=== PATIENT | female | born 2000 | race Two or more races ===

== ENCOUNTER 2022-07-18 21:08 | Inpatient (IN) | payer OTHER ==
[2022-07-18 22:05] VITALS: BMI 24.5
[2022-07-18] MEDS ORDERED: MAG HYDROX/AL HYDROX/SIMETH 30 ML UNIT-DOSE CUP PO PRN (23:29)
[2022-07-18] MEDS ORDERED: NICOTINE 10 MG CARTRIDGE (INHALER) IH PRN (23:29)
[2022-07-18] MEDS ORDERED: P-EPHED 60MG/TRIPROLIDI 2.5MG TABLET PO PRN (23:29)
[2022-07-18] MEDS ORDERED: IBUPROFEN 400 MG TABLET (FP) PO PRN (23:29)
[2022-07-18] MEDS ORDERED: LOPERAMIDE HCL 2 MG CAPSULE PO PRN (23:29)
[2022-07-18] MEDS ORDERED: MELATONIN 5 MG TABLETS PO PRN (23:29)
[2022-07-18] MEDS ORDERED: POLYETHYLENE GLYCOL (HEALTHYLAX) 3350 17 GM PACKET PO PRN (23:29)
[2022-07-18] MEDS ORDERED: NALOXONE HCL (KLOXXADO) 8 MG SPRAY NS PRN (23:29)
[2022-07-18] MEDS ORDERED: BENZOCAINE/MENTHOL (CHLORASEPTIC ) LOZENGE MM PRN (23:29)
[2022-07-18] MEDS ORDERED: BISMUTH SUBSALICYLATE 524 MG/30 ML PO PRN (23:29)
[2022-07-18] MEDS ORDERED: MAGNESIUM HYDROX 2400MG/30ML ORAL SUSPENSION 30 ML CUP PO PRN (23:29)
[2022-07-18] MEDS ORDERED: ACETAMINOPHEN 325 MG TABLET (FP) PO PRN ×2 (23:29)
[2022-07-18] MEDS ORDERED: NALOXONE HCL 0.4 MG/ML VIAL IM PRN (23:29)
[2022-07-18] MEDS ORDERED: ONDANSETRON *ODT* 4 MG TABLET SL PRN (23:29)
[2022-07-18] MEDS ORDERED: IBUPROFEN 600 MG TABLET (FP) PO PRN (23:29)
[2022-07-18] MEDS ORDERED: METHOCARBAMOL 500 MG TABLET PO PRN (23:29)
[2022-07-18] MEDS ORDERED: DICYCLOMINE HCL 10 MG CAPSULE PO PRN (23:29)
[2022-07-18] MEDS ORDERED: guaiFENesin 200 MG/10 ML 10 ML UNIT-DOSE CUPS PO PRN (23:29)
[2022-07-19] MEDS: hydrOXYzine PAMOATE 25 MG CAPSULE (FP) PO PRN ×2 (01:35→05:40)
[2022-07-19 09:40] VITALS: BP 136/70; PULSE 92; RESP 18; TEMP 98.1
[2022-07-19] MEDS ORDERED: PRENATAL VITAMINS W/ FOLIC ACID TABLET (FP) PO SCH (10:00)
[2022-07-19 11:10] LABS: HEMATOCRIT 37.6 % (32.4-45.2); HEMOGLOBIN 12.4 GM/dL (10.7-15.3); MCH 29.2 pg (25.7-33.7); MEAN CELL VOLUME 88.5 fl (80-96); MEAN PLT VOLUME 8.6 fl (7.5-11.1); PLATELET COUNT 282 10^3/uL (134-434); RBC 4.25 M/mm3 (3.60-5.2); RDW 14.4 % (11.6-15.6); WHITE BLOOD COUNT 8.8 K/mm3 (4.0-10.0)
[2022-07-19 11:14] LABS: ALBUMIN 3.9 g/dl (3.4-5.0); CALCIUM 9.1 mg/dL (8.5-10.1)
[2022-07-19 11:17] LABS: CREATININE 0.7 mg/dL (0.55-1.3)
[2022-07-19 11:19] LABS: BILIRUBIN,TOTAL 0.7 mg/dL (0.2-1); TOT PROT 7.9 g/dl (6.4-8.2)
[2022-07-19] MEDS ORDERED: THIAMINE HCL 100 MG TABLET (FP) PO SCH (22:00)
== END 2022-07-19 10:35 | disposition left against medical advice (07) | DRG 770 ==
LOC: YASAS 21:08 → Y6N 23:11 → UNDOADMIN 23:31 → UNDODISIN 07-19 10:35
PROVIDERS: ADMIT Allergy & Immunology; ATTEND Surgery
PROC: HZ2ZZZZ Detoxification Services for Substance Abuse Treatment (ICD-10-PCS; principal; 2022-07-18)
DX: F11.23 Opioid dependence with withdrawal (principal); F14.20 Cocaine dependence, uncomplicated; F15.20 Other stimulant dependence, uncomplicated; F16.20 Hallucinogen dependence, uncomplicated; F17.290 Nicotine dependence, other tobacco product, uncomplicated; Z28.310 Unvaccinated for COVID-19; Z28.9 Immunization not carried out for unspecified reason
CPT/HCPCS: 36415; 80053; 81025; 85027; 86780; 87811; C9803-CS; U0003; U0005